=== PATIENT | male | born 1960 | race Caucasian/White ===

== ENCOUNTER → 2017-10-31 07:49 | Outpatient (CLI) | payer OTHER, SELFPAY ==
--- NOTE | 2017-10-31 08:02 | CT_ITS ---
CT sinus wo con CLINICAL INDICATION: Left-sided facial pain and tenderness with history of sinus cyst ITS.REASON: possible cyst of sinus ORDERING PHYSICIAN: Rodri aLrios MD PATIENT AGE: 57 years COMPARISON: 02/02/2013 TECHNIQUE:Axial images obtained with sagittal and coronal reformats. All CT scans at the facility use one or more dose reduction, viz: automated exposure control, ma/kV adjustment per patient size (including targeted exams where dose is matched to indication, i.e. head), or iterative reconstruction technique. FINDINGS: No significant mucosal thickening or air-fluid levels. Previously noted retention cyst in the right maxillary sinus is no longer apparent. There is mild rightward nasal septal deviation anteriorly. Previously there was a septal spur on the left which is no longer evident. The ostiomeatal complexes are patent. The nasal turbinates are small without edema. No mastoid effusion or sinus air-fluid level. The middle ears are aerated. The TMJs have an unremarkable appearance as do the orbits. Scattered small nodes are present in the neck. IMPRESSION: 1. Essentially negative CT of the sinuses. Previously noted retention cyst in the right maxillary sinus is no longer apparent. 2. Previously noted septal spur on the left no longer apparent
== END ==
PROVIDERS: Family Provider Family Medicine; PCP Family Medicine; Visit Provider Otolaryngology
DX: J32.0 Chronic maxillary sinusitis (principal); J34.1 Cyst and mucocele of nose and nasal sinus; J30.9 Allergic rhinitis, unspecified
CPT/HCPCS: 70486

== ENCOUNTER → 2017-11-14 08:34 | Outpatient (POV) | payer OTHER, SELFPAY ==
[2017-11-14 09:37] VITALS: BP 177/96; PULSE 90; RESP 20; O2SAT 97
== END ==
PROVIDERS: Family Provider Family Medicine; PCP Family Medicine; Visit Provider Clinical Nurse Specialist Family Health
DX: M54.81 Occipital neuralgia (principal)
CPT/HCPCS: 64405

== ENCOUNTER → 2017-12-08 13:45 | Outpatient (POV) | payer OTHER, SELFPAY ==
[2017-12-08 14:23] VITALS: BP 165/104; PULSE 64; RESP 18; O2SAT 98; BMI 26.3
--- NOTE | 2017-12-08 14:26 | HMH.PAINSOAP ---
[facility] Pain Management SOAP Note Subjective:: Patient is a very pleasant 57-year-old white male who presents today after a left occipital nerve block. Patient states that he had several days of increased pain however after the weekend he felt much better. Patient still feeling better. Patient would like a repeat. Patient states he is having some migraines. Patient has had Maxalt in the past is wondering if we can refill this. He rates his pain today a 5 out of 10. ROS General: no recent weight change, no fever, no sleep disturbances Respiratory: no cough, no shortness of air, no recurring pulmonary infections Cardiovascular/Peripheral Vascular: No chest pain, No palpitations, no edema, no shortness of breath. Gastrointestinal: no incontinence, normal bowel movements reported Genitourinary: no incontinence Musculoskeletal: Migraine, neck pain Psychiatric: normal mood/ affect Neurological: [denies weakness in extremities], [denies balance issues] Objective:: Physical Exam General: Alert and oriented x3, no acute distress, pleasant and cooperative, [on room air] Lungs: Resps E/U, Symmetrical chest expansion, Eyes: PERRL Musculoskeletal: Flexion and extension of cervical spine somewhat guarded secondary to pain, tenderness over left occiput, deep tendon reflexes normal, strength in upper and lower extremities [5/5], normal gait noted Neurological: speech clear, engineer automated equipment equal, no gross sensory deficits Assessment:: Occipital neuralgia Plan:: We will schedule a second occipital nerve block. On the left side. Given the efficacy of this I believe it would be beneficial we will also call in Maxalt 5 mg up to 3 times a day as needed and dispense 30 pills for the patient. We will not refill this. I will follow-up with the patient after his injection. This note was dictated using voice recognition software and may contain errors or omissions
== END ==
PROVIDERS: Family Provider Family Medicine; PCP Family Medicine; Visit Provider Clinical Nurse Specialist Family Health
DX: M54.81 Occipital neuralgia (principal)
CPT/HCPCS: 99213

== ENCOUNTER → 2018-01-16 09:30 | Outpatient (POV) | payer OTHER, SELFPAY ==
[2018-01-16 09:45] VITALS: BP 208/108; PULSE 100; RESP 20; O2SAT 97; BMI 26.3
--- NOTE | 2018-01-16 10:14 | HMH.PMPROC ---
- Procedure Date: 01/16/18 Time: 10:14 Anesthesiologist:: Avi Toney MD Complications:: None Pre-procedure Diagnosis:: Occipital neuralgia Post-procedure Diagnosis:: Same Indications for Procedure:: This patient is a pleasant 57-year-old white male who we are treating for occipital neuralgia. He also has headaches. He had a occipital nerve block approximately 1 month ago. He did very well up until Friday when his pain started to return. We will do a repeat left occipital nerve block today for his pain that has now returned. His pain is in the same distribution as previous. Procedure Details:: Occipital nerve block Form consent was obtained and the risk and benefits of the procedure was explained to the patient. Patient was taken to the procedure room. Left occiput was cleansed using ChloraPrep. A 25-gauge needle was used and in a fanlike distribution we deposited approximately 10 mL's bupivacaine 0.25% and Depo-Medrol 40 mg in the area of the left greater and lesser occipital nerves. The patient tolerated the procedure well with no complications. Plan and Disposition:: We will follow-up with him in 2 weeks. Will reevaluate symptoms at that time
== END ==
PROVIDERS: PCP Family Medicine; Visit Provider Anesthesiology
DX: M54.81 Occipital neuralgia (principal)
CPT/HCPCS: 64405

== ENCOUNTER → 2018-05-15 10:17 | Outpatient (CLI) | payer MEDICAID, SELFPAY ==
--- NOTE | 2018-05-15 10:22 | XR_ITS ---
XR shoulder RT min 2V HISTORY: ITS.REASON: RT SHOULDER PAIN ORDERING PHYSICIAN: Naldo Mc MD PATIENT AGE: 57 years Comparison: None FINDINGS: There are mild hypertrophic changes of the acromioclavicular joint with spurring inferiorly at the distal clavicle. No fracture or dislocation. No lytic or blastic change. IMPRESSION: Mild acromioclavicular arthropathy
== END ==
PROVIDERS: PCP Family Medicine; Visit Provider Family Medicine
DX: M25.511 Pain in right shoulder (principal)
CPT/HCPCS: 73030

== ENCOUNTER → 2018-06-22 10:53 | Outpatient (POV) | payer MEDICAID, SELFPAY | PROVIDERS: Visit Provider Specialist | DX: R20.2 Paresthesia of skin (principal) | CPT/HCPCS: 95886; 95910 ==

== ENCOUNTER → 2018-06-24 13:07 | Outpatient (CLI) | payer MEDICAID, SELFPAY ==
--- NOTE | 2018-06-24 13:09 | MR_ITS ---
MR shoulder RT wo con COMPARISON: None HISTORY: Right shoulder pain with limited range of motion ORDERING PHYSICIAN: Tana Awad MD PATIENT AGE: 57 years TECHNIQUE: Routine multiplanar multiecho sequences are performed without intravenous or intra-articular contrast. FINDINGS: There is acromioclavicular hypertrophy with edema at the acromioclavicular joint. There is downsloping of the acromion laterally with subacromial stenosis. Supraspinatus tendon is thickened with increased T2 signal distally consistent with diffuse tendinopathy/tendinosis. A full-thickness tear is not identified. Partial tears cannot be excluded with the thickening and slight increased T2 signal noted. There is also increased T2 signal with thickening of the study infraspinatus tendon with focal increased T2 signal along the distal aspect of the infraspinatus along the undersurface consistent with a partial tear. The subscapularis and teres minor tendons have an unremarkable appearance. Bicipital tendon is in place. No evidence of labral tear. Small amount fluid is present in the bicipital tendon sheath. IMPRESSION: 1. Acromioclavicular arthropathy with subacromial stenosis. 2. Tendinopathy/tendinosis of the supraspinatus tendon without definite tear. 3. Tendinopathy/tendinosis of the infraspinatus tendon with suspected partial tear distally along the undersurface of the tendon
--- NOTE | 2018-06-24 13:12 | XR_ITS ---
XR orbit bilateral min 4V HISTORY: History of metallic foreign body in the eyes. Clearance for MRI needed ITS.REASON: RULE OUT METAL FOREIGN BODY FOR MRI ORDERING PHYSICIAN: Tana Awad MD PATIENT AGE: 57 years Comparison: None TECHNIQUE: AP views are obtained of the orbits with the patient looking up and down FINDINGS: No radio opaque foreign bodies evident. IMPRESSION: No radio opaque orbital foreign body identified
== END ==
PROVIDERS: PCP Family Medicine; Visit Provider Orthopaedic Surgery
DX: M25.511 Pain in right shoulder (principal); H05.53 Retained (old) foreign body following penetrating wound of bilateral orbits
CPT/HCPCS: 70200; 73221

== ENCOUNTER 2018-07-17 09:55 | Outpatient (RCR) | payer MEDICAID, SELFPAY ==
--- NOTE | 2018-07-17 11:06 | HMH.OTOPEV ---
OT Inpatient Evaluation Rehab OT Outpatient Eval Start: 07/17/18 10:47 Freq: Status: Active Protocol: Document 07/17/18 10:47 TFRY (Rec: 07/17/18 11:06 TFRY [id number]) Electronically Signed By Johanna Newberry OT 07/17/18 10:47 Outpatient Therapy Subjective History Subjective History This is a 57 year old right handed male referred to occupational therapy for right shoulder pain - AC joint arthropathy and parital RTC tear (infraspinatus - articular side); supra tendinopathy. Patient reports injuring his shoulder in June of 1982 when playing. Reports he has had pain since but has just gotten worse. Chief Complaint Pain Symptom Type Sharp Symptoms Relieved By Rest/Positioning Symptoms Aggravated By Physical Activity Prior Functional Limitations None Current Functional Limitations Reaching,Lifting,Dressing, Sleeping Symptom Description Activity Dependent Level of pain today (0-10) 0 Pain scale - at its best (0-10) 0 Pain scale - at its worst (0-10) 8 Shoulder/Elbow Eval Shoulder Objective Measurements Palpation Tenderness tenderness shoulder exam standard right tenderness over the bicipital tendon right shoulder exam standard Shoulder Palpation Findings Tenderness Shoulder Palpation Overall Comment Tenderness at AC joint Shoulder ROM Right Shoulder ROM Limitations Pain Shoulder Abduction Active Range of 95 Motion (degrees) Shoulder Abduction Passive Range of 115 Motion (degrees) Shoulder Flexion Active Range of Motion 90 (degrees) Query Text: Shoulder Flexion Passive Range of Motion 95 (degrees) Shoulder External Rotation Active Range 10 of Motion (degrees) Shoulder External Rotation Passive Range 20 of Motion (degrees) Shoulder Internal Rotation Active Range 30 of Motion (degrees) Shoulder Internal Rotation Passive Range 35 of Motion (degrees) pain with active ROM shoulder exam right standard pain with passive ROM shoulder exam right standard decreased ROM shoulder exam standard right Shoulder MMT Shoulder Abduction Strength Grade 3+ Fair+ Shoulder Extension Strength Grade 3+ Fair+ Shoulder Flexion Strength Grade 3+ Fair+ Shoulder Horizontal Abduction Strength 3+ Fair+ Grade
== END 2018-07-17 09:59 | disposition home or self-care (01) ==
LOC: OT 09:55
PROVIDERS: Visit Provider Orthopaedic Surgery
DX: M25.511 Pain in right shoulder (principal)
CPT/HCPCS: 97165

== ENCOUNTER → 2019-05-05 07:47 | Outpatient (CLI) | payer OTHER, SELFPAY ==
--- NOTE | 2019-05-05 07:50 | XR_ITS ---
PROCEDURE: XR CERVICAL SPINE 5V CLINICAL INDICATION: LT ARM PAIN COMPARISON: No exams were available for comparison FINDINGS: There is no acute fracture or dislocation. There is degenerative disc disease C6-7. There is bilateral foraminal impingement by osteophytes at C6-7. IMPRESSION: No acute findings. Degenerative disc disease C6-7. Dictated by: Reese Garces 05/05/2019 10:34 Electronically signed by Reese Garces in [facility] 05/05/2019 10:34
--- NOTE | 2019-05-05 07:50 | CT_ITS ---
PROCEDURE: CT LUNG SCREENING CLINICAL INDICATION: HX TOBACCO USE COMPARISON: No exams were available for comparison TECHNIQUE: The exam was performed on a GE Light Speed [address] scanner using 2.90 mGy CTDI. A low dose helical CT CHEST was performed on a multi-detector scanner. All CT scans at the facility use one or more dose reduction, viz: automated exposure control, ma/kV adjustment per patient size (including targeted exams where dose is matched to indication, i.e. head), or iterative reconstruction technique. The LDCT was performed in a facility that meets the criteria for the screening program. Data regarding this exam was submitted to ACR which is an approved registry. The order for this exam indicates that it came as a result of a lung cancer screening counseling shard decision-making visit that included all the elements required of such a visit including smoking cessation. The radiologist interpreting this exam meets the CMS criteria for the LDCT lung cancer screening program. The exam is reported using the Lung-RADS classification scale and reported to the ACR registry. NOTE: This study was performed for the specific purposes of lung cancer screening and is not an alternative to diagnostic chest CT. RADIATION DOSE: CTDI vol(CT dose Index-volume) = 2.90mG DLP (Dose Length Product) = 106.29 mGcm Lung Rads Category: Two FINDINGS: There is healed granulomatous disease with multiple scattered calcified granulomas in both lung hubbard. There are a few noncalcified pulmonary nodules 1 of the largest approximately 3 millimeters is seen in the lateral right middle lobe image 48 series 4. In the setting of healed granulomatous disease noncalcified granuloma is favored. OTHER FINDINGS: Coronary arterial calcifications are noted. There is some circumferential wall thickening of a long segment of the esophagus. Esophagitis is not excluded. IMPRESSION: Lung rads score 2. Nodules with a very low likelihood of becoming a clinically active cancer. Continued annual screening with low-dose CT in 12 months. Incidental note of prominent coronary arterial calcification which would predispose the patient coronary ischemia. Nonspecific esophageal wall thickening raising the question of esophagitis. Dictated by: Reese Garces 05/05/2019 10:07 Electronically signed by Reese Garces in [facility] 05/05/2019 10:07
== END ==
PROVIDERS: PCP Family Medicine; Visit Provider Family Medicine
DX: Z87.891 Personal history of nicotine dependence (principal); Z12.2 Encounter for screening for malignant neoplasm of respiratory organs; M79.602 Pain in left arm
CPT/HCPCS: 72050

== ENCOUNTER → 2019-06-03 09:24 | Outpatient (CLI) | payer OTHER, SELFPAY ==
--- NOTE | 2019-06-03 09:27 | US_ITS ---
PROCEDURE: US KIDNEY CLINICAL INDICATION: CRD 3, FLANK PAIN COMPARISON: No exams were available for comparison FINDINGS: The right kidney is [id number]. No hydronephrosis, cortical thinning, or renal mass or perinephric fluid collection is evident. The left kidney is [id number]. No hydronephrosis, cortical thinning, or renal mass or perinephric fluid collection is evident. Mild splenomegaly at 14 cm. IMPRESSION: Unremarkable bilateral renal ultrasound Mild splenomegaly Dictated by: Tim Nunez MD 06/03/2019 14:35 Electronically signed by Tim Nunez MD in [facility] 06/03/2019 14:35
== END ==
PROVIDERS: PCP Family Medicine; Visit Provider Family Medicine
DX: R10.9 Unspecified abdominal pain (principal); N18.3 Chronic kidney disease, stage 3 (moderate)
CPT/HCPCS: 76770

== ENCOUNTER → 2019-09-10 14:33 | Outpatient (POV) | payer OTHER, SELFPAY | PROVIDERS: PCP Family Medicine; Visit Provider Internal Medicine Nephrology | DX: Z00.00 Encounter for general adult medical examination without abnormal findings (principal) ==

== ENCOUNTER 2020-04-11 13:45 | Emergency (ER) | payer OTHER, SELFPAY ==
[2020-04-11 14:30] VITALS: BP 00/00; PULSE 0; RESP 0; TEMP -17.7; TEMP 0
== END 2020-04-11 14:31 | disposition left against medical advice (07) ==
LOC: UTC 13:47
PROVIDERS: Emergency Provider Nurse Practitioner Family; PCP Family Medicine
DX: Z53.21 Procedure and treatment not carried out due to patient leaving prior to being seen by health care provider (principal)

== ENCOUNTER 2020-04-12 20:22 | Emergency (ER) | payer OTHER, SELFPAY ==
[2020-04-12 20:16] VITALS: BMI 24.4
== END 2020-04-12 20:29 | disposition home or self-care (01) ==
PROVIDERS: Emergency Provider Nurse Practitioner; PCP Family Medicine; Visit Provider Nurse Practitioner
DX: Z23 Encounter for immunization (principal)
CPT/HCPCS: 90471; 90715; 96372; 99203; G0463

== ENCOUNTER 2020-06-01 09:03 | Outpatient (RCR) | payer OTHER, SELFPAY ==
--- NOTE | 2020-06-01 11:14 | HMH.PTOPEV ---
PT Outpatient Evaluation Rehab PT Outpatient Evaluation Start: 06/01/20 09:10 Freq: Status: Active Protocol: Document 06/01/20 11:04 LUIS A (Rec: 06/01/20 11:14 LUIS A [id number]) Electronically Signed By Braeden Alonso, PT 06/01/20 11:04 Outpatient Therapy Subjective History Subjective History Pt is 59 yowm who presents with c/o pain in low back for many years worse x 1 yr. He reports pain is constant, but worse with standing and walking. He also reports he feels very stiff most of the time. He reports intermittent numbness in B lateral thigh, worse on the L side. 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 He reports heat decreases his pain short term. Chief Complaint Pain,Stiff Symptom Type Ache Symptoms Relieved By Rest/Positioning,Heat Symptoms Aggravated By Standing,Bending/Stooping, Physical Activity,Walking Prior Functional Limitations None Current Functional Limitations Standing,Walking,Bending/ Stooping Symptom Description Constant but Variable Level of pain today (0-10) 3 Pain scale - at its worst (0-10) 8 Lumbopelvic Eval Palapation tenderness bilateral lumbar spinal tenderness Yes: L3-5 paraspinal tenderness Yes: L3-5 Accessory Movement L-spine Vertebrae Accessory Movements [employer] [place] that Elicit Symptoms L3 bilateral L4 bilateral L5 bilateral Range of Motion Lumbar Spine Active Flexion Range of 0-55 Motion (degrees) Lumbar Spine Active Extension Range of 0-20 Motion (degrees) Left Lumbar Spine Lateral Flexion Active 0-15 Range of Motion (degrees) Right Lumbar Spine Lateral Flexion 0-15 Active Range of Motion (degrees) Manual Muscle Test Bilateral Knee Extension Strength Grade 5 Normal Knee Flexion Strength Grade 5 Normal Hip Flexion Strength Grade 5 Normal Hip Abduction Strength Grade 5 Normal Hip Adduction Strength Grade 5 Normal Extensor Hallucis Longus Strength Grade 5 Normal Ankle Dorsiflexion Strength Grade 5 Normal Gastronemius/Soleus Strength Grade 5 Normal Special Tests Hip Scouring (Quadrant) Test Negative Left,Negative Right Sciatic Nerve Tension Test Positive Left,Positive Right Unilateral Straight Leg Raise ([place]) Neg
== END 2020-06-01 09:05 | disposition home or self-care (01) ==
LOC: PT 09:03
PROVIDERS: PCP Family Medicine; Visit Provider Family Medicine
DX: M47.816 Spondylosis without myelopathy or radiculopathy, lumbar region (principal); M51.36 Other intervertebral disc degeneration, lumbar region; M54.5 Low back pain
CPT/HCPCS: 97163

== ENCOUNTER → 2020-06-23 09:01 | Outpatient (POV) | payer OTHER, SELFPAY ==
[2020-06-23 09:13] VITALS: BP 137/74; PULSE 73; RESP 18; TEMP 36.4; BMI 25.7
--- NOTE | 2020-06-23 09:32 | P.CONS_ITS ---
[facility] Pain Management SOAP Note Subjective:: This patient is a pleasant 59-year-old white male who we have been treating for occipital neuralgia. This was on the left side. His pain has returned over the left occiput. He also has some neck pain which has been bothering him over the last couple years now radiating down his left arm. He has had a cervical epidural steroid injection which shows degenerative changes with bulging disc. I do believe he would benefit from a cervical epidural steroid injection. Also he may benefit from a left occipital nerve block in the future. He got almost 2 years relief from his last injection. We will prescribe him prednisone 20 mg once a day for 5 days to help with his pain in the interim while we are seeking approval for a cervical epidural steroid injection under fluoroscopy. Objective:: Alert and oriented x3 no acute distress. Patient has decreased range of motion of the cervical spine with flexion extension. This does aggravate his pain. Motor strength of the upper extremities is 5/5. There is no gross sensory deficit. Assessment:: Degenerative disc disease of the cervical spine with cervical radiculopathy symptoms. Occipital neuralgia Plan:: We will plan on a cervical epidural steroid injection under fluoroscopy. We will also put him on prednisone 20 mg once a day for 5 days in the interim. [facility] History Medical History: Reports:: Diabetes Mellitus Type 1, Migraine Denies:: Cancer, Congestive Heart Failure, Diabetes Mellitus Type 2, MRSA, Pulmonary Embolism, Seizures *Have you ever received a pneumonia vaccine?: Yes *Have you received a flu vaccine this season?: Yes Other Medical History: Reports: Arthritis, Sinus Problems Other Surgeries: Yes: Sinus Surgery, Skin Cancer Excision, Other Amputation: No Fractures: Yes - *Social History Smoking Status: Former smoker Tobacco Type: cigarettes # Packs/Day (cigarettes): 1 #Yrs smoked (if former smoker): 30 Alcohol Intake: never Substance Use Type: denies use *Occupational Status:: other Housing: house *Travel in the last 8 weeks: None Family Hx:: Heart Attack
== END ==
PROVIDERS: PCP Family Medicine; Visit Provider Anesthesiology
DX: M50.10 Cervical disc disorder with radiculopathy, unspecified cervical region (principal); M54.81 Occipital neuralgia
CPT/HCPCS: 99212; G0463

== ENCOUNTER 2020-06-30 08:57 | Day surgery (SDC) | payer OTHER, SELFPAY ==
[2020-06-30 09:01] VITALS: BP 140/82; PULSE 85; RESP 18; TEMP 36.2; O2SAT 96; BMI 25.9
[2020-06-30 09:22] VITALS: BP 150/90; BP 152/89; PULSE 82; PULSE 85; RESP 18; O2SAT 99
--- NOTE | 2020-06-30 09:27 | HMH.PMPROC ---
- Procedure Date: 06/30/20 Time: 09:27 Anesthesiologist:: Avi Toney MD Complications:: None Pre-procedure Diagnosis:: Degenerative disc disease of cervical spine with cervical radiculopathy symptoms Post-procedure Diagnosis:: Same Indications for Procedure:: The patient is a pleasant 59-year-old white male who we are treating for neck pain with cervical radicular symptoms into the left shoulder and left arm. He does have x-rays of the cervical spine which show degenerative changes. He has failed all previous conservative therapy including physical therapy and oral medications. We will try a cervical epidural steroid injection today to see if this gives him relief of his pain symptoms. Procedure Details:: Cervical epidural steroid injection under fluoroscopy Informed consent was obtained and the risks and benefits of the procedure was explained to the patient. The patient was taken to the procedure room placed prone on the procedure table. The neck was prepped using ChloraPrep. The skin and subcutaneous tissues were anesthetized using lidocaine. I placed a 18-gauge epidural needle into the C5-C6 interspace and advanced using [id number] to air and fluoroscopic guidance. After confirmation of needle placement in the epidural space with dye, I injected 3 mL's lidocaine 1.5% and Depo-Medrol 80 mg. The patient tolerated the procedure well with no complications. Plan and Disposition:: We will follow-up with him in 2 weeks. Will reevaluate symptoms at that time.
[2020-06-30 09:35] VITALS: BP 154/71; PULSE 91; RESP 18; O2SAT 96
== END 2020-06-30 09:36 | disposition home or self-care (01) ==
LOC: SC.PAINP 08:57
PROVIDERS: PCP Family Medicine; Visit Provider Anesthesiology
DX: M50.10 Cervical disc disorder with radiculopathy, unspecified cervical region (principal); G43.909 Migraine, unspecified, not intractable, without status migrainosus; M19.90 Unspecified osteoarthritis, unspecified site; G47.33 Obstructive sleep apnea (adult) (pediatric); E10.9 Type 1 diabetes mellitus without complications; Z87.39 Personal history of other diseases of the musculoskeletal system and connective tissue; I10 Essential (primary) hypertension; Z85.828 Personal history of other malignant neoplasm of skin; Z79.82 Long term (current) use of aspirin; Z79.899 Other long term (current) drug therapy; Z79.84 Long term (current) use of oral hypoglycemic drugs
CPT/HCPCS: 62321; J1040; Q9966

== ENCOUNTER 2021-03-24 07:28 | Emergency (ER) | payer OTHER, SELFPAY ==
[2021-03-24] VITALS (8 sets, daily range): BP systolic 151–165; BP diastolic 82–95; PULSE 76–90; RESP 17–18; TEMP 36.6–36.7; O2SAT 96–98; BMI 25.7
[2021-03-24 07:43] LABS: POC Glucose,Bedside 281 (70-110)
--- NOTE | 2021-03-24 07:55 | HMH.EDGENADL ---
ED Disposition Clinical Impression: Acute kidney injury Nausea and vomiting Qualifiers: Vomiting type: unspecified Qualified Code(s): R11.2 - Nausea with vomiting, unspecified Disposition: Home, Self-Care Condition on Discharge: Good Instructions: DI for Nausea -- Adult, DI for Dehydration -- Adult Additional Instructions: You have been evaluated for nausea and vomiting. Please eat a bland diet for the next few days. Stay hydrated. Take zofran for nausea. Follow up with your primary care doctor in 1-2 days for symptom recheck. Return to the emergency department at once for any new or worsening symptoms, abdominal pain, uncontrolled vomiting, other concerns. Prescriptions: Ondansetron [Zofran 4mg ODT] 4 mg PO Q6 PRN #12 tab PRN Reason: Nausea And Vomiting Transmission Status: Pending to [facility] Referrals: Naldo Mc MD [Primary Care Provider] - Time of Disposition: 10:38 - Critical Care Critical Care Time: No Attestation: On , the high probability of a clinically significant, sudden or life threatening deterioration of the following system(s) required my full and direct attention, intervention and personal management. The time I documented below is in addition to time spent performing reported procedures but includes the following listed in this critical care notation. Medical Decision Making - Medical Records Medical records reviewed: Yes: I reviewed the patient's medical records. - Ramos Inquiry Pt receiving controlled substance: No Vital Signs: 03/24/21 07:39 03/24/21 08:00 03/24/21 08:30 Temperature 98.1 F Temperature Source Oral Pulse Rate 81 83 Pulse Rate [Left Radial] 90 Respiratory Rate 17 18 18 Blood Pressure 151/95 H 157/93 H Blood Pressure [Right Arm] 155/94 H Blood Pressure Mean 113 114 Blood Pressure Mean [Right Arm] 114 Blood Pressure Source [Right Arm] Automatic Cuff Blood Pressure Position [Right Arm] Sitting 02 Sat by Pulse Oximetry 96 97 97 Oxygen Delivery Method Room Air 03/24/21 09:00 03/24/21 09:30 03/24/21 10:00 Temperature Temperature Source Pulse Rate 78 78 78 Pulse Rate [Left Radial] Respiratory Rate 18 18 18 Blood Pressure 156/91 H 165/94 H 164/92 H Blood Pressure [Right Arm] Blood Pressure Mean 113 117 124 Blood Pressure Mean [Right Arm] Blood Pressure Source [Right Arm] Blood Pressure Position [Right Arm] 02 Sat by Pulse Oximetry 97 98 98 Oxygen Delivery Method - Lab Data Lab Results 03/24/21 07:36: POC Glucose 281 H 03/24/21 07:50: WBC 12.4 H, RBC 5.65, Hgb 18.4 H, Hct 55.8 H, MCV 98.6 H, MCH 32.2 H, MCHC 32.7, RDW 13.7, Plt Count 243, MPV 7.9, Neut % (Auto) 82.8 H, Lymph % (Auto) 9.2 L, [place] % (Auto) 5.3, Eos % (Auto) 0.6, Baso % (Auto) 2.0, Neut # (Auto) 10.2 H, Lymph # (Auto) 1.1, [place] # (Auto) 0.7, Eos # (Auto) 0.1, Baso # (Auto) 0.3 H 03/24/21 07:50: Sodium 137, Potassium 4.0, Chloride 99, Carbon Dioxide 25, Anion Gap 17.0 H, BUN 24 H, Creatinine 1.60 H, Estimated Creat Clear 61, Estimated GFR 44 L, Est GFR ( Amer) 53 L, Glucose 283 H, Calcium 9.8, Total Bilirubin 2.1 H, AST 50, ALT 32, Alkaline Phosphatase 81, Total Protein 8.1, Albumin 4.9, Globulin 3.2, Albumin/Globulin Ratio 1.5 03/24/21 07:50: Lipase 55 03/24/21 07:50: Acetone Level Small 03/24/21 07:56: SARS-CoV-2 (PCR) Not detected, Influenza A Untype (PCR) Not detected, Influenza Type B (PCR) Not detected 03/24/21 08:10: Urine Color Yellow, Urine Appearance Clear, Urine pH 5.5, Ur Specific [place] 1.020, Urine Protein 1+, Urine Glucose (UA) 3+, Urine Ketones 2+, Urine Blood Negative, Urine Nitrate Negative, Urine Bilirubin 1+ A, Urine Urobilinogen 0.2, Ur Leukocyte Esterase Negative, Urine RBC None, Urine WBC None, Ur Squamous Epith Cells Occasional, Urine Bacteria Trace 03/24/21 08:15: VBG pH 7.36, VBG pCO2 37.4, VBG pO2 161.4 H, VBG HCO3 20.7 L, VBG Total CO2 21.9 L, VBG O2 Saturation 99.0 H, VBG Base Excess -4.7 L Result janis
[2021-03-24 07:59] LABS: Basophils # 0.3 K/mm3 (0-0.2); Eosinophils # 0.1 K/mm3 (0.0-0.4); Eosinophils % 0.6 % (0.1-12.0); Hematocrit 55.8 % (42.0-52.0); Lymphocytes # 1.1 K/mm3 (0.7-4.5); Lymphocytes % 9.2 % (10-50); Mean Corpuscular HGB Conc 32.7 g/dL (31.8-35.4); Mean Corpuscular Hemoglobin 32.2 pg (27.0-31.2); Mean Corpuscular Volume 98.6 fl (80-94); Mean Platelet Volume 7.9 fl (7.4-10.4); Monocytes # 0.7 K/mm3 (0.1-1.0); Monocytes % 5.3 % (1.7-9.3); Neutrophils # 10.2 K/mm3 (1.8-7.8); Neutrophils % 82.8 % (37.0-80.0); Platelet Count 243 K/mm3 (142-424); Red Blood Count 5.65 M/mm3 (4.60-6.20); Red Cell Distribution Width 13.7 % (11.5-17.5); White Blood Count 12.4 K/mm3 (4.8-10.8)
[2021-03-24 08:07] LABS: Coronavirus 19, PCR Not Detected (NotDetected); Influenza A, PCR Not Detected (NotDetected); Influenza B, PCR Not Detected (NotDetected)
[2021-03-24 08:08] LABS: Hemoglobin 18.4 g/dL (14.1-18.0)
[2021-03-24 08:10] LABS: Alanine Aminotransferase 32 U/L (12-78); Albumin Level 4.9 g/dl (3.5-5.0); Albumin/Globulin Ratio 1.5 (1.1-1.8); Alkaline Phosphatase 81 U/L (38-126); Aspartate Amino Transferase 50 U/L (17-59); Bilirubin,Total 2.1 mg/dl (0.2-1.3); Blood Urea Nitrogen 24 mg/dl (9-20); Calcium 9.8 mg/dl (8.4-10.2); Carbon Dioxide 25 mmol/L (22.0-30.0); Chloride 99 mmol/L (98-107); Creatinine Clearance Estimated 61 mL/min (50-200); Estimated Glomerular Filt Rate 44 ml/min (>60); GFR (African American) 53 ML/MIN (>60); Globulin 3.2 g/dL (1.3-3.2); Glucose 283 mg/dl (74-100); Lipase 55 U/L (23-300); Sodium 137 mmol/L (136-145); Total Protein,Serum 8.1 g/dl (6.3-8.2)
--- NOTE | 2021-03-24 08:17 | PC.NURSE ---
called Rt for vbg
[2021-03-24 08:23] LABS: Microscopic, Urine URINE MICROSCOPIC (MICROSCOPIC)
[2021-03-24 08:29] LABS: Appearance,Urine CLEAR (Clear); Blood, Urine Negative (Negative); Color,Urine YELLOW (Yellow); Glucose,Urine (UA) 3+ (Negative); Ketones,Urine 2+ (Negative); Leukocyte Esterase,Urine Negative (Negative); Nitrate,Urine Negative (Negative); PH,Urine 5.5 (5.0-8.5); Protein,Urine 1+ (Negative); Urobilinogen,Urine 0.2 EU/dl (0.2)
[2021-03-24 08:30] LABS: Acetone, Serum (Rapid) Small (None Detect)
[2021-03-24 08:43] LABS: Bilirubin,Urine 1+ (Negative)
[2021-03-24 08:44] LABS: Bacteria,Urine Trace /lpf; Squamous Epithelial Cell,Urine Occasional #/hpf (0-5)
[2021-03-24 08:48] LABS: VBG Base Excess -4.7 mmol/L (-2.4-2.3); VBG HCO3 20.7 mmol/L (23-30); VBG PCO2 37.4 mmol/L (35-51); VBG PH 7.36 mmol/L (7.31-7.41); VBG PO2 161.4 mmol/L (28-40); VBG Total CO2 21.9 mmol/L (23-27)
--- NOTE | 2021-03-24 09:38 | PC.NURSE ---
dietary called for breakfast tray
== END 2021-03-24 11:12 | disposition home or self-care (01) ==
PROVIDERS: Emergency Medicine; Emergency Provider Emergency Medicine; PCP Family Medicine
DX: N17.9 Acute kidney failure, unspecified (principal); E11.65 Type 2 diabetes mellitus with hyperglycemia; I10 Essential (primary) hypertension; Z87.891 Personal history of nicotine dependence; Z79.899 Other long term (current) drug therapy
CPT/HCPCS: 80053; 81001; 82009; 82803; 82962; 83690; 85025; 96365; 96366; 96375; 99283; C9803; J2405; U0003; U0005

== ENCOUNTER → 2021-06-15 15:18 | Outpatient (CLI) | payer OTHER, SELFPAY ==
[2021-06-15 17:20] LABS: Alanine Aminotransferase 27 U/L (12-78); Albumin Level 4.8 g/dl (3.5-5.0); Albumin/Globulin Ratio 1.9 (1.1-1.8); Alkaline Phosphatase 88 U/L (38-126); Anion Gap 12.9 mEq/L (5-15); Aspartate Amino Transferase 29 U/L (17-59); Basophils # 0.2 K/mm3 (0-0.2); Basophils % 2.3 % (0.1-2.0); Bilirubin,Total 0.8 mg/dl (0.2-1.3); Blood Urea Nitrogen 20 mg/dl (9-20); Calcium 9.6 mg/dl (8.4-10.2); Carbon Dioxide 29 mmol/L (22.0-30.0); Chloride 102 mmol/L (98-107); Chol/HDL Ratio 5.4 (1-3.5); Cholesterol 237 mg/dl (140-200); Creatinine,Urine Random 28 mg/dL (Not Estab.); Eosinophils # 0.2 K/mm3 (0.0-0.4); Eosinophils % 3.4 % (0.1-12.0); Estimated Glomerular Filt Rate 44 ml/min (>60); GFR (African American) 53 ML/MIN (>60); Globulin 2.5 g/dL (1.3-3.2); Glucose 161 mg/dl (74-100); HDL Cholesterol 44 mg/dl (40-60); Hematocrit 51.9 % (42.0-52.0); Hemoglobin 16.7 g/dL (14.1-18.0); Lymphocytes # 2.2 K/mm3 (0.7-4.5); Lymphocytes % 30.9 % (10-50); Mean Corpuscular HGB Conc 32.2 g/dL (31.8-35.4); Mean Corpuscular Volume 99.4 fl (80-94); Mean Platelet Volume 9.2 fl (7.4-10.4); Monocytes # 0.4 K/mm3 (0.1-1.0); Monocytes % 6.2 % (1.7-9.3); Neutrophils % 57.4 % (37.0-80.0); Phosphorous 3.8 mg/dl (2.5-4.5); Platelet Count 257 K/mm3 (142-424); Potassium 4.9 mmoL/L (3.5-5.1); Red Blood Count 5.22 M/mm3 (4.60-6.20); Red Cell Distribution Width 13.9 % (11.5-17.5); Sodium 139 mmol/L (136-145); Total Protein,Serum 7.3 g/dl (6.3-8.2); Triglycerides 194 mg/dl (30-150); VLDL Cholesterol 39 mg/dL (0-40)
[2021-06-15 17:21] LABS: Microalbumin/Creatinine Ratio 124.6
[2021-06-15 17:31] LABS: Direct LDL Cholesterol 152.23 mg/dL (100-129)
[2021-06-15 17:33] LABS: Intact Parathyroid Hormone 36.5 pg/mL (7.5-53.5)
[2021-06-15 17:52] LABS: Thyroid Stimulating Hormone 0.94 uIU/mL (0.465-4.68)
[2021-06-15 18:01] LABS: 25-OH Vitamin D, Total > 126 ng/mL (30-100)
[2021-06-15 21:07] LABS: Hemoglobin A1C 7.8 % (4.0-6.0)
== END ==
PROVIDERS: Visit Provider Family Medicine
DX: E11.9 Type 2 diabetes mellitus without complications (principal); E78.2 Mixed hyperlipidemia; I10 Essential (primary) hypertension; N28.9 Disorder of kidney and ureter, unspecified; E55.9 Vitamin D deficiency, unspecified; Z79.84 Long term (current) use of oral hypoglycemic drugs
CPT/HCPCS: 36415; 80053; 80061; 82043; 82306; 82570; 83036; 83970; 84100; 84443; 85025

== ENCOUNTER 2021-12-28 14:52 | Emergency (ER) | payer OTHER, SELFPAY ==
[2021-12-28 15:57] VITALS: BP 131/80; PULSE 88; RESP 19; TEMP 37.1; O2SAT 97; BMI 25.7
--- NOTE | 2021-12-28 16:09 | EXP.UTC ---
Discharge Plan Disposition Patient Disposition: Home, Self-Care Condition: Good Prescriptions Prescriptions: New ondansetron 4 mg tablet,disintegrating 4 mg PO Q8H PRN (Reason: nausea and vomiting) Qty: 6 0RF No Action omega-3-dha 120 mg-epa 180 mg-fish oil-vitamin D3 1,000 unit capsule 120 mg-180 mg -1,000 unit capsule 1 cap PO DAILY carvedilol 6.25 mg tablet 6.25 mg PO BID indomethacin 25 mg capsule 25 mg PO TID lisinopril 10 mg tablet 10 mg PO DAILY levocetirizine [Xyzal] 5 mg tablet 5 mg PO DAILY tramadol 50 mg tablet 100 mg PO BID PRN (Reason: pain) duloxetine [Cymbalta] 60 mg capsule,delayed release(DR/EC) 60 mg PO DAILY aspirin [Adult Low Dose Aspirin] 81 mg tablet,delayed release (DR/EC) 325 mg PO DAILY metformin 500 mg tablet 500 mg PO BID gabapentin 100 mg capsule 300 mg PO BID ondansetron 4 MG tablet,disintegrating 4 mg PO Q6 PRN (Reason: Nausea And Vomiting) Qty: 12 0RF montelukast 10 MG tablet 10 mg PO DAILY doxazosin 2 mg tablet 2 mg PO DAILY tadalafil 5 mg tablet 5 mg PO NEEDED PRN (Reason: BPH) Label Comments: take 1 TO 5 TABLETS ONCE a DAY NEEDED Invokana 100 mg tablet 100 mg PO DAILY Ozempic 0.25 mg or 0.5 mg(2 mg/1.5 mL) pen injector 2 mg SQ DAILY Referrals Follow up/Referrals: Naldo Mc MD [Primary Care Provider] - See instructions Activity Restrictions/Add. Instructions Additional Instructions/Restrictions: Drink extra fluids with and between meals. If you have difficulty drinking, try very small amounts of water or suck on ice chips. ? Avoid fruit juices, as these do not replace minerals and can actually increase diarrhea. ? Children and adults can use sports drinks to replenish electrolytes. Younger children and infants should use products formulated for children, like oral rehydration solutions. ? Eat food in small amounts and let your stomach recover. ? Get lots of rest. You may feel tired or weak. ? No greasy or fried foods for the next 24-48 hours BRAT diet Bananas Rice Apples and [place] ? Make sure to drink plenty of liquids ? Return if needed ? Straight to ER if any life threatening symptoms ? Zofran as prescribed ? You was given an outpatient order for diarrhea panel, please collect specimen and bring back to outpatient lab then call back to the [facility] or follow up with family doctor for results ? Follow up with family doctor in the next 48-72 hours if no improvement or any worsening of symptoms You were tested for today for Upper Respiratory Panel with COVID19 your test result should be back in the next 24-48 hours, Check your results on the [facility] [employer] [facility] Portal Straight to ER if any life threatening symptoms Clinical Impressions Clinical Impression: Viral syndrome Stand Alone Forms Stand Alone Forms: Work/School Release Instructions Patient Instructions: Diarrhea, DI for Viral Syndrome, Nausea and Vomiting-Adult Discharge ED Provider: Janette Hayes [facility] HPI General Stated complaint: vomiting, diarrhea, chest congestion, h/a Mode of Arrival: Ambulatory Source of Information: Patient Limitations: No Limitations Time Seen by Provider: 12/28/21 16:09 Description of Symptoms (Recalled from Triage Doc. by RN): pt comes in with c/o cough, congestion, diarrhea, and vomitting; ongoing for 2 days HEENT Symptoms (Recalled from RN notes): Yes Resp Symptoms (Recalled from RN notes): Yes Skin Symptoms (Recalled from RN notes): No MS Symptoms (Recalled from RN notes): No Functional Status (Recalled from RN notes): n/a History of Present Illness Provider Complaint: Patient state that he started on Friday with vomiting and that got better now he is having some diarrhea State that also he is having sinus congestion and pressure for the last couple of days denies productive cough St
[2021-12-28 16:50] LABS: Influenza A, PCR Not Detected (NotDetected); Influenza B, PCR Not Detected (NotDetected)
[2021-12-28 17:28] LABS: Coronavirus 19, PCR Detected (NotDetected)
[2021-12-28 17:38] VITALS: BP 131/80; PULSE 88; RESP 19; TEMP 37.1
== END 2021-12-28 17:39 | disposition home or self-care (01) ==
PROVIDERS: Emergency Provider Nurse Practitioner; PCP Family Medicine
DX: U07.1 COVID-19 (principal)
CPT/HCPCS: 96365; 96375; 99214; C9803; G0463; J2405; U0003; U0005

== ENCOUNTER 2022-02-26 13:18 | Emergency (ER) | payer OTHER, SELFPAY ==
[2022-02-26] VITALS (7 sets, daily range): BP systolic 137–171; BP diastolic 68–99; PULSE 55–85; RESP 18; TEMP 36.7–36.8; O2SAT 96–98; BMI 25.7
--- NOTE | 2022-02-26 13:40 | XR_ITS ---
FINAL REPORT CLINICAL HISTORY: fall COMPARISON: May 2018 FINDINGS: RIGHT SHOULDER: 3 views of the right shoulder were obtained. There is no acute fracture or dislocation. There are mild degenerative changes of the acromioclavicular and the glenohumeral joints. There is no soft tissue abnormality. IMPRESSION: No acute fracture Reviewed, Interpreted and Dictated by Saw Man III, MD Transcribed by Roman Flores Authenticated and . [facility]
--- NOTE | 2022-02-26 13:40 | XR_ITS ---
FINAL REPORT CLINICAL HISTORY: fall FINDINGS: Right hip with pelvis Three views were obtained. There is no acute fracture or dislocation. There are mild degenerative changes. There is mild vascular calcification. IMPRESSION: No acute bony abnormality. Reviewed, Interpreted and Dictated by Saw Man III, MD Transcribed by Roman Flores Authenticated and [facility]
--- NOTE | 2022-02-26 13:53 | CT_ITS ---
FINAL REPORT CLINICAL HISTORY: fall from roof FINDINGS: Axial CT images of the cervical spine were obtained without contrast. Sagittal and coronal reformatted images were also obtained. This study was performed with techniques to keep radiation doses as low as reasonably achievable (ALARA). Individualized dose reduction techniques using automated exposure control or adjustment of mA and/or kV according to the patient's size were employed. There is no evidence of fracture or dislocation. The bony alignment is normal. There are mild degenerative changes in the mid and lower cervical spine. There is no evidence of canal stenosis. No paraspinous soft tissue abnormality is seen. Limited images of the upper thorax are unremarkable. IMPRESSION: No fracture or acute bony abnormality identified. Mild degenerative changes in the mid and lower cervical spine. Reviewed, Interpreted and Dictated by Saw Man III, MD Transcribed by Danielle Luo Authenticated and [facility]
--- NOTE | 2022-02-26 13:53 | CT_ITS ---
FINAL REPORT CLINICAL HISTORY: fall from roof FINDINGS: Axial images of the head were obtained without contrast. Coronal reformatted images were also obtained. This study was performed with techniques to keep radiation doses as low as reasonably achievable (ALARA). Individualized dose reduction techniques using automated exposure control or adjustment of mA and/or kV according to the patient's size were employed. There is generalized age-appropriate atrophy. Periventricular low-attenuation areas are seen consistent with mild chronic ischemic changes. There is no evidence of intracranial hemorrhage or mass. There is no evidence of acute infarct. There is no evidence of shift of the midline structures. No skull abnormality is seen on the bone window images. IMPRESSION: Atrophy and mild periventricular chronic ischemic changes. No acute intracranial abnormality identified. Reviewed, Interpreted and Dictated by Saw Man III, MD Transcribed by Danielle Luo Authenticated and . [facility]
--- NOTE | 2022-02-26 13:53 | CT_ITS ---
FINAL REPORT CLINICAL HISTORY: fall from roof COMPARISON: 2019 CT FINDINGS: Axial CT images of the chest were obtained with contrast. Coronal reformatted images were also obtained. This study was performed with techniques to keep radiation doses as low as reasonably achievable, (ALARA). Individualized dose reduction techniques using automated exposure control or adjustment of mA and/or KV according to the patient's size were employed. There are severe left coronary artery calcifications, stable. No mediastinal or hilar mass or adenopathy is identified. No axillary mass or adenopathy is identified. On the lung window images, several calcified granulomas are present. A small groundglass opacity is seen at the left lung apex. There is no evidence of pneumothorax. There is mild dependent atelectasis. No chest wall abnormalities identified. IMPRESSION: No evidence of acute thoracic injury. Authenticated and [facility]
--- NOTE | 2022-02-26 13:53 | CT_ITS ---
FINAL REPORT CLINICAL HISTORY: fall from roof FINDINGS: Axial CT images of the thoracic spine were obtained without contrast. Sagittal and coronal reformatted images were also obtained. This study was performed with techniques to keep radiation doses as low as reasonably achievable (ALARA). Individualized dose reduction techniques using automated exposure control or adjustment of mA and/or kV according to the patient's size were employed. There is no evidence of fracture. The vertebral alignment is normal. There is multilevel mild degenerative change. There is no evidence of significant canal stenosis. No paraspinous soft tissue abnormality is identified. IMPRESSION: Mild degenerative change with no fracture or acute bony abnormality. No significant central canal stenosis. Reviewed, Interpreted and Dictated by Saw Man III, MD Transcribed by Danielle Luo Authenticated and . [facility]
--- NOTE | 2022-02-26 13:53 | CT_ITS ---
FINAL REPORT CLINICAL HISTORY: fall from roof FINDINGS: Axial imaging of the lumbar spine was obtained without contrast. Sagittal and coronal reformatted images were also obtained and reviewed.This study was performed with techniques to keep radiation doses as low as reasonably achievable (ALARA). Individualized dose reduction techniques using automated exposure control or adjustment of mA and/or kV according to the patient's size were employed. There is no fracture. The vertebral alignment is normal. There are mild degenerative changes with osteophytes. There is no evidence of significant central canal stenosis. IMPRESSION: Mild degenerative changes with no acute bony abnormality. No significant central canal stenosis. Reviewed, Interpreted and Dictated by Saw Man III, MD Transcribed by Danielle Luo Authenticated and [facility]
--- NOTE | 2022-02-26 13:55 | HMH.EDGENADL ---
Discharge Plan Disposition Patient Disposition: Home, Self-Care Condition: Fair Prescriptions Prescriptions: New oxycodone-acetaminophen [Percocet] 5-325 mg tablet 1 tab PO Q6H PRN (Reason: pain) Qty: 15 0RF No Action omega-3-dha 120 mg-epa 180 mg-fish oil-vitamin D3 1,000 unit capsule 120 mg-180 mg -1,000 unit capsule 1 cap PO DAILY carvedilol 6.25 mg tablet 6.25 mg PO BID indomethacin 25 mg capsule 25 mg PO TID lisinopril 10 mg tablet 10 mg PO DAILY levocetirizine [Xyzal] 5 mg tablet 5 mg PO DAILY tramadol 50 mg tablet 100 mg PO BID PRN (Reason: pain) duloxetine [Cymbalta] 60 mg capsule,delayed release(DR/EC) 60 mg PO DAILY aspirin [Adult Low Dose Aspirin] 81 mg tablet,delayed release (DR/EC) 325 mg PO DAILY metformin 500 mg tablet 500 mg PO BID gabapentin 100 mg capsule 300 mg PO BID ondansetron 4 MG tablet,disintegrating 4 mg PO Q6 PRN (Reason: Nausea And Vomiting) Qty: 12 0RF montelukast 10 MG tablet 10 mg PO DAILY doxazosin 2 mg tablet 2 mg PO DAILY tadalafil 5 mg tablet 5 mg PO NEEDED PRN (Reason: BPH) Label Comments: take 1 TO 5 TABLETS ONCE a DAY NEEDED Invokana 100 mg tablet 100 mg PO DAILY Ozempic 0.25 mg or 0.5 mg(2 mg/1.5 mL) pen injector 2 mg SQ DAILY ondansetron 4 mg tablet,disintegrating 4 mg PO Q8H PRN (Reason: nausea and vomiting) Qty: 6 0RF Referrals Follow up/Referrals: Naldo Mc MD [Primary Care Provider] - See instructions Activity Restrictions/Add. Instructions Additional Instructions/Restrictions: Crutches, no weightbearing on right lower extremity until seen by [facility] orthopedics. [facility] orthopedic office will call you to arrange follow-up appointment to be seen within 1 to 2 weeks. Percocet as needed for pain. Additional instructions for CONTROLLED SUBSTANCES: You have been prescribed a medication that is a controlled substance. Controlled substances include pain medications known as opiates and sedative nerve medications known as benzodiazepines. Tramadol, fioricet, and gabapentin are also controlled substances. Some common opiates include: Codeine (such as Tylenol #3) Hydrocodone (Vicodin, Lortab, Lorcet, Bagley) Oxycodone (Percocet, Percodan, Oxycodone, Oxy IR) Some common benzodiazepines include: Diazepam (Valium) Lorazepam (Ativan) Alprazolam (Xanax) Clonazepam (Klonopin) Oxazepam (Serax) All of these controlled substances are highly addictive and frequently abused. Misuse can and frequently does lead to addiction as well as overdose and . Medication should be stored in a locked cabinet or other secure storage unit. Do not store the medication in a motor vehicle. Short term supplies, 3 days or less, are prescribed because of the highly addictive nature of the medication. Any of the controlled substance medication NOT taken should be disposed of properly and NOT SAVED. The recommended method of disposing of unused medications is: Place the medicines in a sealable plastic bag. If the medicine is a solid, crush it or add water to dissolve it. Add something undesirable (cat litter, coffee grounds, etc.) Dispose of sealed bag in household trash Do not flush or pour unused medicines down a sink or drain. Controlled substances should not be shared, given away or sold. Because of the addictive nature and frequent abuse, these medications are sometimes stolen. These medications should be kept in a safe place where they cannot be stolen. Do not keep them in your car or purse. Lost or stolen prescriptions for controlled substances WILL NOT BE REFILLED in this emergency department, regardless of whether a police report was filed. Clinical Impressions Clinical Impression: Acetabulum fracture, right, Injury of right shoulder, Contusion of rib on right side, Cervical muscle strain, Fall from roof
--- NOTE | 2022-02-26 14:19 | CT_ITS ---
FINAL REPORT CLINICAL HISTORY: fall from roof FINDINGS: CT OF THE ABDOMEN AND PELVIS WITH CONTRAST Axial CT images of the abdomen and pelvis were obtained after the administration of IV contrast. Coronal and sagittal reformatted images were also obtained and reviewed.This study was performed with techniques to keep radiation doses as low as reasonably achievable (ALARA). Individualized dose reduction techniques using automated exposure control or adjustment of mA and/or kV according to the patient's size were employed. Abdomen:. Fatty infiltration of the liver is noted. The gallbladder is present. The spleen is unremarkable. No adrenal mass is present. The pancreas has an unremarkable appearance. Small bilateral renal cysts are present. The aorta is normal in caliber. There is no free fluid or adenopathy. No mass or abnormal fluid collection is seen. There are moderate vascular calcifications. Pelvis: The appendix is enlarged and measures up to 10 mm in diameter. No localized inflammation is seen in this region, and there is no convincing evidence of appendicitis. The urinary bladder is unremarkable. Multiple diverticula are noted in the sigmoid colon. There is no evidence of hemoperitoneum. There is no evidence of mass or adenopathy. There is no evidence of bowel obstruction. There is a small left inguinal hernia containing fat only. IMPRESSION: No evidence of acute intra-abdominal process. Authenticated and [facility]
[2022-02-26 14:22] LABS: Basophils # 0.1 K/mm3 (0-0.2); Basophils % 1.1 % (0.1-2.0); Eosinophils # 0.2 K/mm3 (0.0-0.4); Eosinophils % 3.3 % (0.1-12.0); Hemoglobin 16.3 g/dL (14.1-18.0); Lymphocytes # 1.5 K/mm3 (0.7-4.5); Lymphocytes % 19.9 % (10-50); Mean Corpuscular HGB Conc 34.1 g/dL (31.8-35.4); Mean Corpuscular Hemoglobin 33.7 pg (27.0-31.2); Mean Corpuscular Volume 98.8 fl (80-94); Mean Platelet Volume 8.4 fl (7.4-10.4); Monocytes # 0.4 K/mm3 (0.1-1.0); Monocytes % 4.7 % (1.7-9.3); Neutrophils # 5.3 K/mm3 (1.8-7.8); Neutrophils % 70.9 % (37.0-80.0); Platelet Count 186 K/mm3 (142-424); Red Blood Count 4.86 M/mm3 (4.60-6.20); Red Cell Distribution Width 15.1 % (11.5-17.5); White Blood Count 7.4 K/mm3 (4.8-10.8)
[2022-02-26 14:24] LABS: Chloride 106 mmol/L (98-107); Potassium 4.3 mmoL/L (3.5-5.1); Sodium 138 mmol/L (136-145)
[2022-02-26 14:27] LABS: Alanine Aminotransferase 40 U/L (12-78); Albumin Level 4.2 g/dl (3.5-5.0); Albumin/Globulin Ratio 1.8 (1.1-1.8); Alkaline Phosphatase 99 U/L (38-126); Anion Gap 15.3 mEq/L (5-15); Aspartate Amino Transferase 41 U/L (17-59); Bilirubin,Total 0.8 mg/dl (0.2-1.3); Blood Urea Nitrogen 21 mg/dl (9-20); Calcium 9.3 mg/dl (8.4-10.2); Carbon Dioxide 21 mmol/L (22.0-30.0); Creatinine Clearance Estimated 57 mL/min (50-200); Estimated Glomerular Filt Rate 41 ml/min (>60); GFR (African American) 50 ML/MIN (>60); Globulin 2.4 g/dL (1.3-3.2); Glucose 248 mg/dl (74-100); Total Protein,Serum 6.6 g/dl (6.3-8.2)
--- NOTE | 2022-02-26 15:05 | PC.NURSE ---
IVF started on pt at this time for CT scan with contrast r/t low GFR
--- NOTE | 2022-02-26 16:15 | PC.NURSE ---
contacted rad to check on status of pt going to CT
--- NOTE | 2022-02-26 16:17 | PC.NURSE ---
pt in CT
--- NOTE | 2022-02-26 16:58 | PC.NURSE ---
ER at discussing pt POC and results
--- NOTE | 2022-02-26 17:01 | CT_ITS ---
PROCEDURE INFORMATION: Exam: CT Right Lower Extremity Without Contrast, Hip Exam date and time: 02/26/2022 5:13 PM Age: 61 years old Clinical indication: Injury or trauma; Fall; Additional info: Fall from roof TECHNIQUE: Imaging protocol: CT of the Right lower extremity without contrast was performed. Exam focused on the hip. Radiation optimization: All CT scans at this facility use at least one of these dose optimization techniques: automated exposure control; mA and/or kV adjustment per patient size (includes targeted exams where dose is matched to clinical indication); or iterative reconstruction. COMPARISON: CR XR HIP RT 2-3V W/PELVIS 02/26/2022 2:42 PM FINDINGS: Bones/joints: Subtle nondisplaced fracture of the right acetabulum. This involves the anterior column. The fracture plane extends approximately 2.6 cm above the acetabular roof. There is no evidence of displacement. Soft tissues: Normal. IMPRESSION: Nondisplaced acetabular fracture extending 2.6 cm above the acetabular roof as described above.
--- NOTE | 2022-02-26 17:03 | PC.NURSE ---
notified rad of CT hip order
--- NOTE | 2022-02-26 17:10 | PC.NURSE ---
pt to CT via stretcher
--- NOTE | 2022-02-26 17:14 | PC.NURSE ---
pt given a urinal, was unable to ambulate at this time due to pain. he reports no other needs at this time
--- NOTE | 2022-02-26 18:41 | PC.NURSE ---
checked on pt at this time, states no needs, offered him tv remote, he declined. Notified pt his CT has just resulted in the computer and will send ER MD into go over results as soon as he is available.
--- NOTE | 2022-02-26 18:44 | PC.NURSE ---
KALANI CARRION at
--- NOTE | 2022-02-26 18:57 | PC.NURSE ---
[facility] images to [facility], Call out to [facility] for ortho consult, awaiting call back
--- NOTE | 2022-02-26 19:37 | PC.NURSE ---
shift change report given to alvertorn and candida bowers and lamarrn
== END 2022-02-26 20:46 | disposition home or self-care (01) ==
PROVIDERS: Emergency Provider Emergency Medicine; PCP Family Medicine
DX: S32.401A Unspecified fracture of right acetabulum, initial encounter for closed fracture (principal); S49.91XA Unspecified injury of right shoulder and upper arm, initial encounter; S20.211A Contusion of right front wall of thorax, initial encounter; S16.1XXA Strain of muscle, fascia and tendon at neck level, initial encounter; W13.2XXA Fall from, out of or through roof, initial encounter; Z79.82 Long term (current) use of aspirin; Z79.899 Other long term (current) drug therapy; Z79.84 Long term (current) use of oral hypoglycemic drugs; Z88.0 Allergy status to penicillin; Z87.891 Personal history of nicotine dependence
CPT/HCPCS: 70450; 71260; 72125; 72128; 72131; 73030; 73502; 73700; 74177; 80053; 85025; 96365; 99285; Q9967

== ENCOUNTER 2022-04-10 14:30 | Outpatient (RCR) | payer OTHER, SELFPAY ==
--- NOTE | 2022-03-29 15:56 | HMH.PTOPEV ---
PT Outpatient Evaluation Rehab PT Outpatient Evaluation Start: 03/29/22 15:40 Freq: Status: Active Protocol: Document 03/29/22 15:40 PHONATHALY (Rec: 03/29/22 15:56 PHORCHAPINCITO [id number]) E-signed By Braeden Alonso, PT Outpatient Therapy Subjective History Subjective History This is the initial PT eval for Lukas Blake 61 yowm who presents with mild R hip pain S/P fall from a roof (~8 ft) onto R side with resulting R acetabular fx ~ 1 mo ago. He states, My neck and my right shoulder hurt worse than my hip right now. Pt has hx of chronic neck and back pain as well, but they are worse since the fall. He is currently ambulating with a straight cane with antalgic gait on the R LE. Chief Complaint Pain Symptom Type Ache Symptoms Relieved By Rest/Positioning Symptoms Aggravated By Standing,Physical Activity, Walking Prior Functional Limitations None Current Functional Limitations Standing,Walking Symptom Description Intermittent,Activity Dependent Level of pain today (0-10) 1 Pain scale - at its worst (0-10) 5 Hip/Knee Eval Gait Observation General Gait Pattern Observation Antalgic Gait,Decrease Stride Lngth (R),Decrease Stride Lngth (L) Assistive Device Assistive Devices Straight Cane Palpation Tenderness right Knee Palpation Overall Comment R lateral hip Hip Palpation Findings Tenderness MMT Hip Flexion Strength Grade 4 Good Hip Abduction Strength Grade 4 Good Hip Adduction Strength Grade 4 Good Gluteus Arnold Strength Grade 4 Good Hip External Rotation Strength Grade 4 Good Hip Internal Rotation Strength Grade 4 Good Knee Extension Strength Grade 5 Normal Knee Flexion Strength Grade 5 Normal Special Tests Hip Bowstring (Cram) Test Negative Left,Positive Right Outpatient Therapy Assessment Impairments Problems/Impairmments Palpation Tenderness,Impaired Range of Motion,Impaired Strength,Impaired Endurance, Impaired Gait Pattern,Impaired Walking,Impaired Standing, Impaired Recreational Activities,Subjective C/O Pain
== END 2022-04-10 14:35 | disposition home or self-care (01) ==
LOC: PT 14:30
PROVIDERS: PCP Family Medicine; Visit Provider Family Medicine
DX: S32.401A Unspecified fracture of right acetabulum, initial encounter for closed fracture (principal)
CPT/HCPCS: 97110; 97112; 97163

== ENCOUNTER 2022-07-29 14:00 | Outpatient (RCR) | payer OTHER, SELFPAY | END 2022-07-29 14:05 | disposition home or self-care (01) | LOC: OT 14:00 | PROVIDERS: PCP Family Medicine; Visit Provider Neuromusculoskeletal Medicine, Sports Medicine | DX: M25.511 Pain in right shoulder (principal) | CPT/HCPCS: 97010; 97014; 97140; 97164; 97165; 97530; G0283 ==